=== PATIENT | female | born 1945 | race Caucasian/White ===

== ENCOUNTER → 2018-03-06 | Outpatient (CLI) | payer OTHER ==
[~2018-03-06] MED LIST: ADVAIR HFA 230M12 GM INH; ALBUTEROL INH; AMBIEN 5 MG TABL5 M1 PO; AMLODIPINE BESY10 MG PO; ANORO ELLIPTA1 EACH INH; CARDIZEM CD 30300 M1 PO; CARDIZEM CD120 MG PO; CARDIZEM CD240 MG PO; CATAPRES-TTS 10.1 MG TRANSDERM; CLONIDINE0.1 PO; DILAUDID 2 MG TA2 MG PO; ELIQUIS5 MG PO; FLECAINIDE ACE100 MG PO; LASIX 20 MG TAB20 MG PO; LISINOPRIL10 MG PO; MAGOX 400400 MG PO; METFORMIN HCL500 MG PO; PHENERGAN 25 MG25 M1 PO; POTASSIUM20 PO; PROAIR HFA8.5 GM INH; PROTONIX 20 MG20 M1 PO; PROTONIX40 M1 PO; SYMBICORT160 MCG/4. INH; TESSALON PERLE100 MG PO; TOPROL XL100 MG PO; XANAX 0.25 MG0.25 MG PO; XANAX 0.5 MG0.5 MG PO; ZOLOFT50 MG PO
[2018-03-06 09:03] LABS: HEMATOCRIT 35.1 % (37.0-47.0); HEMOGLOBIN 11.9 gm/dL (12.0-15.0); MCH 26.5 pg (26.0-34.0); MCHC 33.9 g/dL (28.0-37.0); MCV 78.3 fL (80.0-100.0); RBC 4.48 mil/uL (4.20-5.00); WBC 9.3 thou/uL (4.0-11.0)
[2018-03-06 09:21] LABS: ALBUMIN 3.8 g/dL (3.4-5.0); CALCIUM 9.3 mg/dL (8.5-10.1); CREATININE 1.5 mg/dL (0.6-1.0); POTASSIUM 5.4 mmol/L (3.5-5.1); TOTAL BILIRUBIN 0.3 mg/dL (<0.1-1.0); TOTAL PROTEIN 7.6 g/dL (6.4-8.2)
== END ==
LOC: CAT 08:36
PROVIDERS: Internal Medicine Cardiovascular Disease
DX: I48.91 Unspecified atrial fibrillation (principal); I25.10 Atherosclerotic heart disease of native coronary artery without angina pectoris; E04.1 Nontoxic single thyroid nodule; R16.1 Splenomegaly, not elsewhere classified; M47.814 Spondylosis without myelopathy or radiculopathy, thoracic region; I10 Essential (primary) hypertension; E78.5 Hyperlipidemia, unspecified; J44.9 Chronic obstructive pulmonary disease, unspecified; E11.9 Type 2 diabetes mellitus without complications

== ENCOUNTER 2018-03-17 06:35 | Inpatient (IN) | payer OTHER ==
[~2018-03-17] VITALS: Ht 165.1 cm; Wt 111.4 kg
--- NOTE | ~2018-03-17 | P ---
[facility] [place] [address] PROCEDURE REPORT Name: CARMEL DIGGS Room #: 219-P [facility] M..#: [id number] Admission: 03/17/18 Attend Phys: Ramirez Burt MD Discharge: Date of : 47 Report #: [id number] THIS REPORT FOR: //name// CC: Dk Burt DATE OF SERVICE: 03/17/2018 PREOPERATIVE DIAGNOSIS: Paroxysmal atrial fibrillation. POSTOPERATIVE DIAGNOSIS: Paroxysmal atrial fibrillation. PROCEDURES PERFORMED: 1. Atrial fibrillation ablation, CPT code 47309. 2. 3D mapping, CPT code 25051. 3. Intracardiac echocardiogram, CPT code 45019. 4. Program stimulation and pacing after IV, CPT code 22731. HISTORY OF PRESENT ILLNESS: The patient is a 72-year-old female, with history of paroxysmal AFib, COPD who is status post implantable loop recorder insertion with [employer] LINQ device and who has had increasing episodes of paroxysmal atrial fibrillation despite antiarrhythmic drug therapy. She is here for AFib ablation. ANESTHESIA: The patient underwent general anesthesia with no anesthesia related complications. DESCRIPTION OF PROCEDURE: The patient underwent informed consent. We discussed the details of the procedure including the risk, which include, but not limited to, bleeding, vascular damage, cardiac perforation as well as stroke or [place]. She understood these risks and was willing to proceed. The patient was brought to the EP laboratory in a fasting and unsedated state and prepped and draped in a sterile fashion. I injected lidocaine at the right groin region. I obtained access to the right femoral vein x 3. Next, I positioned an 8-Ecuadorean, 7-Ecuadorean and 9-Ecuadorean short sheaths using the modified Seldinger technique. Next, under fluoroscopy, I placed a decapolar catheter easily in the coronary sinus and an ice catheter into the right atrium. I then created a detailed 3D geometry using [employer] and was able to localize the 4 pulmonary veins and the left atrial appendage. The patient was systemically heparinized and a transseptal was performed using an SL1 sheath and a Whitwell needle. The transseptal puncture was straightforward. Next, I placed a Lasso catheter into the left atrium and obtained baseline measurements from all 4 pulmonary veins and then exchanged the SL1 sheath for the cryo sheath and cryoballoon. The left superior pulmonary vein underwent 3 total freezes. The first freeze had low temperature and therefore, we came off early. The second [address] [address] PROCEDURE REPORT Name: CARMEL DIGGS Room #: 219-P [facility] M.R.#: [id number] Admission: 03/17/18 Attend Phys: Ramirez Burt MD Discharge: Date of : 47 Report #: [id number] freeze was o 4 minutes' duration and the vein was isolated within 75 seconds. I performed a 3-minute freeze. The post-ablation of the left superior pulmonary vein there were far field left atrial appendage potentials noted. Next, the left inferior pulmonary vein was isolated. I performed a 4-minute freeze and the vein isolated within 70 seconds. I performed a second freeze of 180 seconds duration. The right superior pulmonary vein was slightly harder to isolate. I performed the first freeze and came off after 84 seconds as the maximal negative temperature was 30 degrees. I performed a second freeze where I came off after 73 seconds and the maximal temperature was -31 degrees. I then performed a third freeze of 4 minutes' duration with maximal minus temperature of 30 degrees. The fourth freeze was then performed and I advanced the balloon deeper into the vein and clocked the balloon and at this time, the temperatures were much better at -41 degrees. This freeze was of 4 minutes' duration. Post ablation, this vein was isolated with entrance and exit block. I then turned my attention to the right inferior pulmonary vein. This vein had 2 branches. The first 2 freezes were done in the superior branch and then the last freeze was done in the inferior branch. The first freeze was of 4 minutes' duration with a maximum minus temperature of -43 degrees. The second freeze was 180 seconds in duration and then, the third freeze was of 4 minutes' duration in the lower branch with a maximal minus temperature of -39 degrees. This vein also demonstrated entrance and exit block. All veins were reinterrogated and were found to be isolated. Pre-ablation, the patient was in sinus rhythm with sinus cycle length of 770 milliseconds, VA interval 200 milliseconds, QRS duration 88 milliseconds, QT interval 405 milliseconds. A basic EP study was performed and AV block was noted at 450 milliseconds. AV narendra ERP was noted at 290 milliseconds at a [address] cycle length. Isoproterenol infusion was started at 1 mcg per minute and AV block was noted at 340 milliseconds. AV narendra ERP was noted 270 milliseconds at [address] cycle length. There were no jumps and there were no echoes noted. There was no induction of SVT. There were some short bursts of atrial tachycardia lasting 3-5 beats. Isoproterenol was then discontinued and the patient was in sinus rhythm with sinus cycle length of 875 milliseconds, VA interval 245 milliseconds, QRS duration 88 milliseconds, QT interval 480 milliseconds. As such, the procedure was concluded. Using intracardiac ultrasound, I verified that there was no pericardial effusion. As such, the patient received systemic protamine and once the ACT was within acceptable range, we pulled sheaths and I tied the right groin down with a [id number] stitch in anticipating that she would probably cough a lot post ablation given her known COPD. CONCLUSIONS: 1. Successful atrial fibrillation ablation with isolation of the pulmonary veins. [facility] [address] [place] [address] PROCEDURE REPORT Name: CARMEL DIGGS Room #: 219-P [facility] M..#: [id number] Admission: 03/17/18 Attend Phys: Ramirez Burt MD Discharge: Date of : 47 Report #: [id number] 2. Normal electrophysiology study with no induction of supraventricular tachycardia or other atrial arrhythmias on or off isoproterenol. By: [id number] Ramirez Burt MD /nt
--- NOTE | ~2018-03-17 | D ---
[facility] [place] [address] DISCHARGE SUMMARY Name: CARMEL DIGGS Room #: 219-P ADM IN M.R.#: [id number] Admission: 03/17/18 Attend Phys: Ramirez Burt MD Discharge: Date of : 47 Report #: [id number] THIS REPORT FOR: //name// CC: Dk Burt DISCHARGE DIAGNOSES: 1. Atrial fibrillation. 2. Chronic obstructive pulmonary disease. 3. Hypertension. PROCEDURES PERFORMED: AFib ablation. HISTORY OF PRESENT ILLNESS: The patient is a 72-year-old with history of recurrent paroxysmal AFib, who has an implantable loop recorder as well who has been having increased atrial fibrillation with associated symptoms despite flecainide therapy. She is here for an AFib ablation. She underwent successful isolation of the pulmonary veins without any complications. She did have a little bit of a nosebleed from an NG tube placed during the procedure, but this stopped shortly after she was extubated. HOSPITAL COURSE: She was monitored in the CCU overnight and did well. On telemetry, she remained in sinus rhythm; however, she did have a lot of nausea, vomiting and anxiety related issues. We therefore kept an additional night to optimize her nausea, vomiting, anxiety and fatigue. On the day of discharge, she was doing better. No more nausea or vomiting. Her anxiety was improved and her energy was slightly improved as well. PHYSICAL EXAMINATION: HEART: Regular rate and rhythm. LUNGS: Clear bilaterally with no significant wheezing. ABDOMEN: Soft, nontender. EXTREMITIES: Her groin showed no bruising or hematoma. She did have a chest x-ray performed on the day prior to discharge, which showed normal lung status with no evidence of pneumonia. As such, she was deemed stable for discharge home. She will continue with her flecainide and Eliquis therapy. She will continue with diltiazem and lisinopril for her hypertension and her other noncardiac medications remain the same. Discharge instructions were reviewed and she will follow up with me in 3 months. By: 7 0 Ramirez Burt MD /nt
--- NOTE | ~2018-03-17 | EKG ---
[address] [address] ELECTROCARDIOGRAM REPORT Name: DIGGSCARMEL DEIRDRE Room #: 219-P ADM IN M.R.#: [id number] Admission: 03/17/18 Attend Phys: Ramirez Burt MD Discharge: Date of : 47 Report #: [id number] THIS REPORT FOR: //name// [facility] Test Date: 2018-03-18 Test Time: 08:48:43 Pat Name: CARMEL DIGGS Department: Room: 219 P Gender: F Postdoctoral Research Fellow: AKILA : 1945 Requested By: Ramirez Burt Order Number: [id number] MD: Ramirez Burt Measurements Intervals [place] Rate: 73 P: 114 [place]: 194 QRS: 42 QRSD: 92 T: 66 QT: 413 QTc: 456 Interpretive Statements Sinus rhythm Baseline wander in lead(s) V1 Compared to ECG 01/03/2018 09:28:02 Poor R-wave progression no longer present Electronically Signed On 03-18-2018 17:41:11 CDT by Ramirez Burt [email or web address] <ELECTRONICALLY SIGNED> By: Ramirez Burt MD 03/18/18 1741 0848 Ramirez Burt MD /EPI
[~2018-03-17 06:35] MED LIST changes: -ADVAIR HFA 230M12 GM INH; -AMLODIPINE BESY10 MG PO; -ANORO ELLIPTA1 EACH INH; -CLONIDINE0.1 PO; -DILAUDID 2 MG TA2 MG PO; -MAGOX 400400 MG PO; -XANAX 0.5 MG0.5 MG PO
[2018-03-17 07:16] LABS: ABSOLUTE NEUTROPHILS 5.6 thou/uL (1.4-8.2); BASOPHILS 0.7 % (0.0-2.0); EOSINOPHILS 2.4 % (0.0-3.0); LYMPHOCYTES 21.9 % (24.0-44.0); MCHC 33.5 g/dL (28.0-37.0); MCV 77.8 fL (80.0-100.0); MONOCYTES 6.6 % (1.0-8.0); PLATELET COUNT 183 thou/uL (150-400); POLYS 68.4 % (36.0-66.0); RBC 4.62 mil/uL (4.20-5.00); RDW 16.5 % (10.5-14.5); WBC 8.2 thou/uL (4.0-11.0)
[2018-03-17 07:17] VITALS: BP 89/69
[2018-03-17 07:28] LABS: CREATININE 1.2 mg/dL (0.6-1.0); POTASSIUM 4.4 mmol/L (3.5-5.1)
[2018-03-17 07:35] LABS: ALBUMIN 3.7 g/dL (3.4-5.0); TOTAL BILIRUBIN 0.3 mg/dL (<0.1-1.0); TOTAL PROTEIN 7.6 g/dL (6.4-8.2)
[2018-03-17] MEDS ORDERED: AMLODIPINE BESY10 MG PO (07:39)
[2018-03-17] MEDS ORDERED: TESSALON PERLE100 MG PO (07:42)
[2018-03-17] MEDS ORDERED: CLONIDINE0.1 PO (07:44)
[2018-03-17 07:45] LABS: APTT 28.1 Seconds (24.5-32.8); PROTIME 10.2 Seconds (9.3-11.4)
[2018-03-17] MEDS ORDERED: ADVAIR HFA 230M12 GM INH (07:46)
[2018-03-17] MEDS ORDERED: DILAUDID 2 MG TA2 MG PO (07:47)
[2018-03-17] MEDS ORDERED: MAGOX 400400 MG PO (07:49)
[2018-03-17] MEDS ORDERED: TOPROL XL100 MG PO (07:50)
[2018-03-17] MEDS ORDERED: ANORO ELLIPTA1 EACH INH (07:54)
[2018-03-17 14:01] VITALS: BP 146/59
[2018-03-17 16:00] VITALS: BP 139/66
[2018-03-17 19:02] VITALS: BP 162/79
[2018-03-18 00:12] VITALS: BP 125/56
[2018-03-18] MEDS ORDERED: XANAX 0.5 MG0.5 MG PO (04:25)
[2018-03-18 08:40] VITALS: BP 122/46
[2018-03-18 11:21] VITALS: BP 117/45
[2018-03-18 17:50] VITALS: BP 132/55
[2018-03-18 19:19] VITALS: BP 123/43
[2018-03-19 05:27] VITALS: BP 112/54
[2018-03-19 08:30] VITALS: BP 122/55
[2018-03-19 11:11] VITALS: BP 138/64
[2018-03-19 14:20] VITALS: BP 138/64
== END 2018-03-19 14:55 | disposition home or self-care (01) | DRG 274 ==
LOC: CATH 06:35 → 2N 13:58 → CATH 13:58 → 2N 13:58 → ENTRNSPT 03-19 14:28 → EDTRNSPTSTS 03-19 14:30 → 2N 03-19 14:53
PROVIDERS: Internal Medicine Cardiovascular Disease
DX: I48.0 Paroxysmal atrial fibrillation (principal); J96.10 Chronic respiratory failure, unspecified whether with hypoxia or hypercapnia; J44.9 Chronic obstructive pulmonary disease, unspecified; I10 Essential (primary) hypertension; F41.9 Anxiety disorder, unspecified; E11.9 Type 2 diabetes mellitus without complications; E78.5 Hyperlipidemia, unspecified; Z88.0 Allergy status to penicillin; Z88.8 Allergy status to other drugs, medicaments and biological substances; Z88.6 Allergy status to analgesic agent; Z88.1 Allergy status to other antibiotic agents; Z91.041 Radiographic dye allergy status; Z79.899 Other long term (current) drug therapy; Z85.528 Personal history of other malignant neoplasm of kidney; Z90.5 Acquired absence of kidney; Z90.49 Acquired absence of other specified parts of digestive tract; Z86.73 Personal history of transient ischemic attack (TIA), and cerebral infarction without residual deficits; Z90.710 Acquired absence of both cervix and uterus; Z82.49 Family history of ischemic heart disease and other diseases of the circulatory system; Z87.891 Personal history of nicotine dependence; Z99.81 Dependence on supplemental oxygen; F32.9 Major depressive disorder, single episode, unspecified; Z83.3 Family history of diabetes mellitus; Z80.3 Family history of malignant neoplasm of breast
CPT/HCPCS: 10081; 62110; 62900; 70005